=== PATIENT | male | born 1950 | race Caucasian/White ===

== ENCOUNTER 2021-05-07 03:02 | Emergency (ER) | payer MEDICARE ==
[2021-05-07] MEDS: Sodium Chloride 0.9% 10 ML Syringe FLUSH PRN (03:40)
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
[2021-05-07] MEDS: HYDROmorphone 1 MG/ML Syringe IVPUSH ONE (04:02)
[2021-05-07] MEDS: HYDROmorphone 1 MG/ML Syringe IM ONE (04:11)
[2021-05-07 04:25] LABS: ANION GAP 12.8 mmol/L (5-15); CHLORIDE,CL 101 mmol/L (98-107); SODIUM,NA 140 mmol/L (136-145)
== END 2021-05-07 05:31 | disposition home or self-care (01) ==
LOC: KA.ED 03:02
DX: S91.011A Laceration without foreign body, right ankle, initial encounter (principal); I82.431 Acute embolism and thrombosis of right popliteal vein; L03.115 Cellulitis of right lower limb; I10 Essential (primary) hypertension; Z72.0 Tobacco use; Z79.01 Long term (current) use of anticoagulants; Z79.899 Other long term (current) drug therapy; W22.8XXA Striking against or struck by other objects, initial encounter
CPT/HCPCS: 36415; 80053; 83605; 85025; 85379; 85610; 86140; 87070; 87075; 87186; 87205; 96374; 99284; 99284-25; A9270-GY; J1170

== ENCOUNTER 2023-05-30 10:01 | Emergency (ER) | payer MEDICARE ==
[2023-05-30] MEDS: Lidocaine 2% with EPINEPHrine 1:100,000 20 ML MDV INJECT ONE (11:21)
== END 2023-05-30 11:54 | disposition home or self-care (01) ==
LOC: KA.ED 10:01
DX: L02.415 Cutaneous abscess of right lower limb (principal); I10 Essential (primary) hypertension; E66.9 Obesity, unspecified; Z90.49 Acquired absence of other specified parts of digestive tract; Z79.01 Long term (current) use of anticoagulants; Z79.899 Other long term (current) drug therapy; Z68.33 Body mass index [BMI] 33.0-33.9, adult
CPT/HCPCS: 10060; 99282; J3490